=== PATIENT | female | born 1955 | race Caucasian/White ===

== ENCOUNTER 2017-05-19 20:01 | Emergency (ER) | payer OTHER ==
[~2017-05-19] VITALS: Ht 154.9 cm; Wt 58.2 kg
[2017-05-19 21:23] LABS: HEMATOCRIT 41.4 % (36.0-46.0); HEMOGLOBIN 14.2 G/DL (11.9-15.5); MCH 30.9 PG (29.0-34.0); MCHC 34.3 G/DL (30.0-36.0); MCV 90.2 FL (83-99); PLATELET COUNT 197 K/uL (156-360); RBC DIS.WIDTH-CV 13.2 % (11.8-14.6); RBC DIS.WIDTH-SD 43.5 % (39-53); RED BLOOD COUNT 4.59 M/uL (3.80-5.20); WHITE BLOOD COUNT 6.8 K/uL (4.1-10.2)
[2017-05-19 21:38] LABS: CHLORIDE 108 mEq/L (99-109); POTASSIUM 3.5 mEq/L (3.7-5.4); SODIUM 145 mEq/L (136-147)
[2017-05-19 21:40] LABS: GLUCOSE 110 mg/dL (70-99)
[2017-05-19 21:44] LABS: GFR ESTIMATE (CALCULATED) > 59 mL/min/
[2017-05-19 21:45] LABS: UREA NITROGEN (BUN) 30 mg/dL (9-23)
[2017-05-19 21:46] LABS: TROP-I INTERPRETATION NEGATIVE; TROPONIN-I < 0.01 ng/mL (0.0-0.30)
[2017-05-19 22:58] LABS: TROP-I INTERPRETATION NEGATIVE; TROPONIN-I < 0.01 ng/mL (0.0-0.30)
[2017-05-19 23:48] VITALS: BP 117/62
== END 2017-05-19 23:49 | disposition home or self-care (01) ==
LOC: EME 20:01
PROVIDERS: Emergency Medicine
DX: R07.9 Chest pain, unspecified (principal); F32.9 Major depressive disorder, single episode, unspecified; F41.9 Anxiety disorder, unspecified
CPT/HCPCS: 71046; 80048; 84484; 85027; 93005; 99281; 99284